=== PATIENT | female | born 1990 | race Caucasian/White ===

== ENCOUNTER 2021-04-13 19:13 | Emergency (ER) | payer BC ==
[~2021-04-13] VITALS: Ht 167 cm; Wt 55.0 kg
--- NOTE | 2021-04-13 20:09 | ED Lower Extremity ---
General Chief Complaint: Lower Extremity Stated Complaint: L ANKLE PAIN Source: patient Exam Limitations: no limitations (ARTHUR WHITE APRN) History of Present Illness Date Seen by Provider: Apr 13, 2021 Time Seen by Provider: 20:06 Initial Comments To ER by private vehicle with reports of pain and swelling to the left foot and ankle. This began after she slipped on a freshly mopped floor while at work at [employer] just prior to arrival. Onset: just prior to arrival Severity: moderate Pain/Injury Location: left ankle Method of Injury: fell Modifying Factors: Worse With Movement (ARTHUR WHITE APRN) Allergies and Home Medications Patient Home Medication List Home Medication List Reviewed: Yes (ARTHUR WHITE APRN) Review of Systems Constitutional: see HPI EENTM: see HPI Respiratory: no symptoms reported Cardiovascular: no symptoms reported Genitourinary: no symptoms reported Musculoskeletal: see HPI Skin: no symptoms reported Psychiatric/Neurological: No Symptoms Reported (ARTHUR WHITE APRN) Physical Exam Vital Signs Vital Signs - First Documented 04/13/21 19:56 Temp 36.3 Pulse 72 Resp 18 B/P (MAP) 104/62 (76) Pulse Ox 99 O2 Delivery Room Air (ZABRINA FITCH MD) Vital Signs Capillary Refill : (ARTHUR WHITE APRN) Height, Weight, BMI Height: '" Weight: lbs. oz. kg; BMI Method: General Appearance: WD/WN, no apparent distress HEENT: PERRL/EOMI, normal ENT inspection Respiratory: no respiratory distress, no accessory muscle use Hips: bilateral hip non-tender, bilateral hip normal inspection, bilateral hip normal range of motion Legs: bilateral leg non-tender, bilateral leg normal inspection, bilateral leg normal range of motion Knees: bilateral knee non-tender, bilateral knee normal inspection, bilateral knee normal range of motion Ankles: left ankle pain, left ankle swelling (Only over the lateral malleolus is there is swelling. There is no swelling or tenderness over the medial malleolus. Most of her pain however is over the arch of her foot both dorsally and on the plantar surface. Strong dorsalis pedis pulse.) Neurologic/Psychiatric: alert, normal mood/affect, oriented x 3 Skin: normal color, warm/dry (ARTHUR WHITE APRN) Progress/Results/Core Measures Results/Orders Vital Signs/I&O 04/13/21 04/13/21 19:56 20:54 Temp 36.3 Pulse 72 62 Resp 18 18 B/P (MAP) 104/62 (76) 106/66 Pulse Ox 99 99 O2 Delivery Room Air Room Air (ZABRINA FITCH MD) Departure Impression Primary Impression: Sprain and strain of ankle Disposition: 01 HOME, SELF-CARE Condition: Stable Departure-Patient Inst. Decision time for Depature: 20:08 (ARTHUR WHITE APRN) Referrals: COREY MCDOWELL DO (PCP/Family) Primary Care Physician Patient Instructions: Ankle Sprain ED Add. Discharge Instructions: Mateus wrap on at all times. Keep it elevated as much as possible. Use crutches as needed for pain with walking. When the pain subsides, you may quit using the crutches. All discharge instructions reviewed with patient and/or family. Voiced understanding. Attending physician statement: I was physically present as attending physician in the emergency department during the care of this patient, but I was not directly involved in this patient's care or in the decision making of this patient's case. (ZABRINA FITCH MD) ARTHUR WHITE APRN Apr 13, 2021 20:08 ZABRINA FITCH MD Apr 14, 2021 20:10
--- NOTE | 2021-04-13 20:37 | Diagnostic Imaging Report ---
INDICATION: Injury, left ankle pain. FINDINGS: Three views of the left ankle demonstrate normal ossification. No fracture, subluxation or joint effusion is present. IMPRESSION: Normal left ankle. Dictated by: Dictated on workstation # [id number]
--- NOTE | 2021-04-13 20:38 | Diagnostic Imaging Report ---
INDICATION: Left foot injury. FINDINGS: Three views of the left foot demonstrate normal ossification. No fracture or subluxation is present. IMPRESSION: Negative left foot. Dictated by: Dictated on workstation # [id number]
[2021-04-13 20:54] VITALS: BP 106/66
== END 2021-04-13 20:54 | disposition home or self-care (01) ==
LOC: EDUNIT# 19:13 → ER 19:16
DX: S93.402A Sprain of unspecified ligament of left ankle, initial encounter (principal); W01.0XXA Fall on same level from slipping, tripping and stumbling without subsequent striking against object, initial encounter; Y99.0 Civilian activity done for income or pay
CPT/HCPCS: 73610; 73630

== ENCOUNTER → 2023-09-17 | Outpatient (CLI) | payer BC ==
--- NOTE | 2023-09-17 14:56 | Diagnostic Imaging Report ---
INDICATION: Follow-up low lying placenta and anatomy not seen on prior exam. TECHNIQUE: Multiple real-time grayscale images were obtained over the gravid uterus. COMPARISON: 07/22/2023 FINDINGS: Cervix measures 5.3 cm in length. Fetus is in cephalic presentation. Placenta is anteriorly positioned and there is no longer low-lying. The inferior margin of the placenta is greater than 2 cm above the internal cervical os. The LUPIS is normal at 13.29 cm. anatomy seen on today's exam includes normal lips/nose, kidneys, profile, four-chamber heart and spine. IMPRESSION: 1. There is no longer a low-lying placenta. 2. The kidneys and spine are normal. Dictated by: Dictated on workstation # [id number]
== END ==
LOC: RAD 09:00
PROVIDERS: ATTEND Obstetrics & Gynecology
DX: O44.42 Low lying placenta NOS or without hemorrhage, second trimester (principal); Z3A.00 Weeks of gestation of pregnancy not specified
CPT/HCPCS: 76816